=== PATIENT | male | born 1970 | race Caucasian/White ===

== ENCOUNTER 2017-10-27 14:26 | Inpatient (IN) | payer OTHER ==
[~2017-10-27] VITALS: Ht 172.7 cm; Wt 67.1 kg
--- NOTE | 2017-10-27 15:30 | NUR ---
Pre-Admit Assessment Accountant Bookkeeper encounters pt in intake office. Pt is calm and cooperative and bale to make needs known. Pt is intoxicated and com writer unable to get a COWS. Pt last used at 1000 this morning and used Heroin and Fentanyl IV. Pt is A/O x4, flat affect with depressed mood. Pt is requesting medical management of opiate withdrawals. Pt is stable for admission. VS as follows BP:132/57 P: 54 R: 18 T: 98.4 O2: 97% P: 0/10
[2017-10-27] MEDS ORDERED: ONDANSETRON 4 MG/2 ML VIAL IM PRN (16:15)
[2017-10-27] MEDS ORDERED: ACETAMINOPHEN 325 MG TABLET PO PRN (16:15)
[2017-10-27] MEDS ORDERED: MAGNESIUM HYDROXIDE 30 ML LIQUID UDC PO PRN (16:15)
[2017-10-27] MEDS ORDERED: BUPRENORPHINE HCL 2 MG TAB.SUBL SL PRN (16:15)
[2017-10-27] MEDS ORDERED: IBUPROFEN 600 MG TABLET PO PRN (16:15)
[2017-10-27] MEDS ORDERED: MIRALAX 17 GM POWD.PACK PO PRN (16:15)
[2017-10-27] MEDS ORDERED: ONDANSETRON ODT 4 MG TAB.RAPDIS SL PRN (16:15)
[2017-10-27] MEDS ORDERED: MAG HYDROX/AL HYDROX/SIMETH 30 ML LIQUID UDC PO PRN (16:15)
[2017-10-27] MEDS ORDERED: LOPERAMIDE HCL 2 MG CAPSULE PO PRN ×2 (16:15)
--- NOTE | 2017-10-27 16:31 | NUR ---
Admission Pt is a 47 year old male admitted to [facility] for medical management of Opiate withdrawals. Pt arrived on the unit at 1631. Pt with constricted eyeballs, and is flushed and anxious. Pt with a flat affect and congruent mood. A/O x4 and makes needs known. Pt is intoxicated, COWS deferred, having last used at 1000 this morning. Pt endorses, feeling fine, then states, I am starting to get a bit edgy. Pt endorses teary eyes, chills, skin crawling and generalized malaise, when I get enough sleep to come down. Pt states, you know I feel horrible and nasty. Pt denies any history of seizures. Endorses blackouts and has overdosed twice, without need of Narcan or ER treatment. Pt states he has been to one treatment facility in 2005 and left after a week. Pt has been abstinent from ETOH for approximately 14 years, due to a diagnosis of Pancreatitis. Substance use: 1. Heroin, pt began using IV Heroin at age 33, 14 years ago. Pt used 1-2 grams a day for 14 years and then weaned himself to 0.5 grams daily x1 month. Pt states he first used opiates at age 7 when he chewed up his grandmas Dilaudid. Last IV shot was at 1000 10/27/17, 0.1 grams 2. Fentanyl pt states he has been using 2 points a week of substance purchased from the street. Pt states he used 2 points in the last week and has been using that amount for the past few months. Pt last used 1 point(IV) at 1000 this morning. 3. Crack, pt states he began using at age 16 and has used up to 2 grams a day since, with a period of abstinence between 2011- and 2015. Pt endorses last use on 10/26/09, about .25 grams. 4. ETOH, pt with a history of ETOH abuse and has not had a drink in 14 years after being diagnosed with Pancreatitis. Pt states he uses, tova if I dont I will feel like crap. I dont like most people, dont like how my life has been going the last couple of years. Pt endorses wanting to get sober, to see what the other side looks like. I have been high my entire life, Kahlua in my milk as a child, smoking weed at 1 and eating Dilaudid at 7. Everyone says how great sobriety is, thought I would try. Pt states he has no support system, although parents allowed pt to stay at their house while pt was accepted into rehab. Pt delays and is indecisive when asked about family support, we just butt heads, constantly. Pt attributes this lack of support and the fact he is homeless as possible barriers to staying sober. Pt sees loss of friendships, lots gone b the wayside, and legal issues as major consequences of his use. Pt states he has never really tried to get sober, aside from 1 week in treatment in 2005. Pt is wanting [facility] and go to [facility] and live in sober living. Pt states he has a history of Pancreatitis and no PPH. Pt denies any PCP. Pt has no history of 5150, no psych hospitalizations or SA. Pt denies SI/HI or A/VH. Pt has a right forearm abscess., pictures taken and placed in chart. Vital Signs: BP: 132/57, P: 54, R: 18, T:98.4, O2: 97%: P:0/10 Addendum: 10/30/17 at 1427 by RONNIE DON RN Clarification of Use History: Patient states that he first used Fentanyl 2 weeks ago. Everyday for the past 2 weeks he used IV Fentanyl that he purchased on the streets. Patient is unaware how many mcg of fentanyl he used daily, but states that he spent $20/day on Fentanyl and that was enough to inject 3x/day. He states that he last used on the day of admission at 1000 am.
[2017-10-27 17:52] LABS: BASOPHILS # (AUTO) 0.1 K/uL (0.0-8.0); EOSINOPHILS # (AUTO) 0.2 K/uL (0.0-0.7); EOSINOPHILS % (AUTO) 2.9 % (0.0-7.0); HEMATOCRIT 31.9 % (36.7-47.1); HEMOGLOBIN 10.4 g/dL (12.5-16.3); LYMPHOCYTES # (AUTO) 1.4 K/uL (20.0-40.0); LYMPHOCYTES % (AUTO) 21.3 % (20.5-51.5); MEAN CORPUSCULAR HEMOGLOBIN 26.2 uug (23.8-33.4); MEAN CORPUSCULAR HGB CONC 33 g/dL (32.5-36.3); MEAN CORPUSCULAR VOLUME 80.3 fL (73.0-96.2); MONOCYTES # (AUTO) 0.7 K/uL (2.0-10.0); MONOCYTES % (AUTO) 11.1 % (0.0-11.0); NEUTROPHILS # (AUTO) 4.1 K/uL (1.8-8.9); NEUTROPHILS % (AUTO) 63.7 % (38.5-71.5); PLATELET COUNT (AUTO) 167 K/uL (152-348); RED BLOOD CELL COUNT(AUTO) 3.98 MIL/uL (4.06-5.63); WHITE BLOOD COUNT (AUTO) 6.4 K/uL (3.6-10.2)
[2017-10-27 18:02] LABS: ETHANOL < 3 MG/DL (0-0)
[2017-10-27 18:04] LABS: ALANINE AMINOTRANSFERASE 26 U/L (16-63); ALKALINE PHOSPHATASE 120 U/L (50-136); ASPARTATE AMINOTRANSFERASE 14 U/L (15-37); BILIRUBIN,TOTAL 0.2 mg/dL (0.2-1.0); CARBON DIOXIDE 28 mmol/L (21-32); CHLORIDE 101 mmol/L (98-107); CREATININE 1.2 mg/dL (0.6-1.3); GLUCOSE 99 mg/dL (74-106); MAGNESIUM 2.1 mg/dL (1.8-2.4); TOTAL PROTEIN, SERUM 6.7 g/dL (6.4-8.2); UREA NITROGEN, BLOOD 12 mg/dL (7-18)
--- NOTE | 2017-10-27 19:00 | NUR ---
End of Shift Pt is a 47 year old male admitted to [facility] this afternoon by brief writer, for medical management of Opiate withdrawals. Pt endorses NKA, full code and regular diet. Pt with a PMH of Pancreatitis and no PPH. No known seizure history. See admit note for specifics. Galley Boy covered pts abscess with MD desiree in room aand ordered surgical consult. Pt was admitted intoxicated and is currently resting. Bed in low position with wheels locked and side rails up x2.
--- NOTE | 2017-10-27 19:15 | NUR ---
Start of shift note Received report from day shift nurse. Pt is a 47 yo male, A+Ox4, presenting to [facility] for medically supervised Opiate withdrawal. Pt was also using crack cocaine. Pt noted to be restless, anxious, and agitated. Pt has HX of pancreatitis which will be monitored during shift. Pt is on PRN medications, and is to start 3 day Subutex taper tomorrow. Respirations even and unlabored. Will continue to monitor.
[2017-10-27 19:43] LABS: *AMPHETAMINE, URINE NEGATIVE (NEGATIVE); *BARBITURATE, URINE NEGATIVE (NEGATIVE); *CANNABINOID, URINE NEGATIVE (NEGATIVE); *COCCAINE, URINE POSITIVE (NEGATIVE); *OPIATE, URINE POSITIVE (NEGATIVE); *PHENCYCLIDINE SCREEN,URINE NEGATIVE (NEGATIVE)
[2017-10-27 20:14] VITALS: BP 129/44
--- NOTE | 2017-10-27 20:14 | NUR ---
COWS Assessment COWS: 9. Pt noted with pulse 47, chills, enlarged pupils, stuffy nose, stomach cramps, fine tremors, yawning, and obvious anxiety. Respirations even and unlabored. Will continue to monitor.
--- NOTE | 2017-10-28 00:58 | NUR ---
V/S refused and COWS deferred for sleep. Respirations even and unlabored. Will continue to monitor.
--- NOTE | 2017-10-28 04:20 | NUR ---
V/S refused and COWS deferred for sleep. Respirations even and unlabored. Will continue to monitor.
[2017-10-28] MEDS: LORAZEPAM 1 MG TABLET PO PRN ×3 (05:55→22:18)
--- NOTE | 2017-10-28 05:57 | NUR ---
PRN Ativan 2mg Pt c/o anxiety and requested for PRN Ativan. Medication given and tolerated well. Will reassess within 1 HR. Will continue to monitor.
--- NOTE | 2017-10-28 06:48 | NUR ---
PRN Ativan 2mg Reassessment Medication effective. Pt expresses reduction of anxiety. No s/s of ASE noted at this time. Respirations even and unlabored. Will continue to monitor.
--- NOTE | 2017-10-28 07:00 | NUR ---
End of shift note Pt was continuously noted with anxiety, restlessness, and agitation. Pt remained in room for majority of shift except to go smoke on smoking patio, to get food from kitchen, and to interact with other patients in recreational room. Pt remained compliant and cooperative with all aspects of treatment. Pt was given PRN Ativan 2mg @0557. Pt is on PRN medications and is due to start 3 day Subutex taper today. Pt slept for a total of 4 HRS. Last COWS: 9 @1999. Respirations even and unlabored. Will endorse to day shift nurse.
[2017-10-28 08:00] VITALS: BP 125/72
--- NOTE | 2017-10-28 08:20 | NUR ---
START OF SHIFT: Received Pt A/O x 4. His pupils are pinpointed. He nods off during assessment. He is refusing PPD. Subutex held per MD due to COWS score.. COWS 8. He states he is tired and would like to sleep more. Encouraged increased fluids and rest. Will continue to monitor and provide support.
[2017-10-28] MEDS: BUPRENORPHINE HCL 2 MG TAB.SUBL SL SCH ×2 (09:00→20:02)
[2017-10-28] MEDS ORDERED: TUBERCULIN,PURIF.PROT.DERIV. 5 TU/0.1 ML TEST ID ONE (09:00)
[2017-10-28] MEDS ORDERED: 3 DAY TAPER BUPRENORPHINE -SERENITY PROTOCOL SL PRN (09:00)
[2017-10-28 12:00] VITALS: BP 111/59
--- NOTE | 2017-10-28 12:15 | NUR ---
COWS deferred as Pt is asleep. Respiratons even and unlabored. Will continue to monitor.
--- NOTE | 2017-10-28 13:00 | NUR ---
Wound culture done as ordered and sent to lab.
[2017-10-28] MEDS: SULFAMETH/TRIMETH 800/160 MG TABLET PO SCH ×2 (13:53→20:02)
--- NOTE | 2017-10-28 13:59 | NUR ---
PRN Ativan given for reported agitation,restlessness and severe anxiety. COWS 10 he states he would like to wait a while for Subutex .Will also administer PRN Robaxin for reported body aches and muscle cramps.
[2017-10-28] MEDS: METHOCARBAMOL 750 MG TABLET PO PRN (14:05)
--- NOTE | 2017-10-28 14:59 | NUR ---
Pt states Ativan is effective and he feels more relaxed. Will continue to monitor. Addendum: 10/28/17 at 1800 by MARIELA LAN RN Pt states the Robaxin was only mildly effective.
[2017-10-28] MEDS ORDERED: LIDOCAINE 2%-EPI 1:100,000 20 ML VIAL TP ONE (15:30)
[2017-10-28] MEDS ORDERED: SILVER NITRATE APPLICATOR STICK EACH TP ONE (15:30)
[2017-10-28] MEDS ORDERED: BUPRENORPHINE HCL 2 MG TAB.SUBL SL ONE ×3 (15:30→23:00)
--- NOTE | 2017-10-28 15:30 | NUR ---
GROCERY STORE COURTESY CLERK assessed Pt's wound. Consent signed by Pt and GROCERY STORE COURTESY CLERK performed I & D. She collected culture and it was sent to lab. New order per MD for Bactrim PO BID. Was instructed to cleanse wound with NS and pack with Iodoform gauze then cover with dry dressing. He tolerated procedure well. Pictures taken and placed in chart. Addendum: 10/28/17 at 1751 by MARIELA LAN RN wound care ordered daily
--- NOTE | 2017-10-28 15:40 | NUR ---
One time Subutex 4 mg SL given as AM diose was held due to low COWS score. COWS 14 will monitor effectiveness of medication.
[2017-10-28 16:00] VITALS: BP 125/75
--- NOTE | 2017-10-28 16:10 | NUR ---
Pt states Subutex was effective. COWS 11. Will continue to monitor.
[2017-10-28] MEDS: CLONIDINE HCL 0.1 MG TABLET PO PRN (17:18)
--- NOTE | 2017-10-28 17:20 | NUR ---
Pt is having severe muscle twitching and is extremely fidgety,anxious and restless. PRN Clonidine 0.1 mg PO given. Will monitor effectiveness.
--- NOTE | 2017-10-28 18:00 | NUR ---
MD Communication Pt is experiencing full body muscle twitching and restlessness. He appears uncomfortable with a strained facial expression. Contacted MD with orders for Gabapentin TID starting now and one time Subutex.
[2017-10-28] MEDS: GABAPENTIN 400 MG CAPSULE PO SCH ×2 (18:12→20:02)
--- NOTE | 2017-10-28 18:20 | NUR ---
PRN Clonidine was not effective.
--- NOTE | 2017-10-28 18:21 | NUR ---
Subutex 4mg SL given one time per MD for COWS 15. He is twitching and unable to sit still with fidgeting and reports anxiety . Gabapentin 400 mg po also given as ordered. Will monitor effectiveness of Subutex.
--- NOTE | 2017-10-28 19:12 | NUR ---
Subutex only mildly effective as pt is still flailing and twitching.COWS 14. Pt placed on 1:1 for safety.
--- NOTE | 2017-10-28 19:13 | NUR ---
END OF SHIFT: Pt started Subutex this afternoon to manage s/s of w/d which include muscle aches ,anxiety, sweats and late in the day severe muscle twitching and flailing. He was placed on 1:1 for safety. PRN Ativan,Clonidine and PRN Robaxin given to assist in managing s/s of w/d. Last COWS 14. Pt is twitching and fidgeting uncontrollably and states this has happened before when he has detoxed in the past. He was compliant with increased fluids. PPD refused. [facility]
--- NOTE | 2017-10-28 19:30 | NUR ---
START OF SHIFT Patient is a 47-year-old male admitted on 10/27/17 for opiate withdrawal. Patient is currently on a 3-day Subutex taper, as of today; tolerating well. Patient's last COWS was 14 per day shift, after most recent dose of Subutex. Patient received PRN Robaxin, Clonidine and Ativan today, of which only the PRN Ativan was noted to be effective. Patient also received 2 doses of ONE-TIME Subutex 4mg SL; the first dose was noted to be effective, the second was much less effective. Upon assessment, patient appears very restless, extremities flailing and jerking, patient is unable to remain still for more than a few seconds at any given moment. Patient reports feeling anxious and complains of 8/10 lower back pain that is "throbbing." When asked how the pain started, patient reported, "I've had this back pain since 1998." Patient is alert and oriented x3, able to follow commands and cooperative. Patient is disheveled, unshaven, and is odorous. Patient is currently on a 1:1 for safety as of 1830 earlier today, as his condition has changed in the last couple hours. Patient is unsteady and unable to control his body movements. Patient is on fall and seizure precautions, with no history of seizure. Safety measures in place, side rails up x2, bed locked in low position, call light within reach, 1:1 at bedside. Will continue to monitor.
[2017-10-28 20:00] VITALS: BP 128/76
--- NOTE | 2017-10-28 20:00 | NUR ---
COWS 25 Patient is increasingly tremulous and restless, agitated, anxious, flushed and diaphoretic. Patient has been sneezing, yawning, and flailing constantly. Patient's respirations are even and unlabored, patient is still oriented to name, place and situation. Charge nurse notified. SN to administer medications as ordered. Will continue to monitor.
[2017-10-28] MEDS: diphenhydrAMINE 50 MG CAPSULE PO PRN (20:10)
--- NOTE | 2017-10-28 20:10 | NUR ---
PRN BENADRYL After receiving scheduled meds, patient reports, "I just need to sleep." PRN Benadryl 50mg given PO. Safety measures in place, 1:1 at bedside. Will monitor for effectiveness.
[2017-10-28] MEDS: KETOROLAC TROMETHAMINE 30 MG INJ IM PRN (20:12)
--- NOTE | 2017-10-28 20:12 | NUR ---
PRN TORADOL Patient reported to nurse that previous PRN Robaxin was ineffective and requested a different pain medication. MD was notified; approved PRN Toradol. Patient reports lower back pain, 8/10 on pain scale. SN administered PRN Toradol IM to patient's left deltoid; patient tolerated well and was able to remain still for a few seconds to receive the injection. Safety measures in place, side rails up x2, bed locked in low position, 1:1 at bedside. Will monitor for effectiveness.
--- NOTE | 2017-10-28 20:21 | NUR ---
PRN IMODIUM Patient reports having "diarrhea," first bout was within the last hour. PRN Imodium given PO. Safety measures in place, 1:1 at bedside. Will monitor for effectiveness.
--- NOTE | 2017-10-28 20:42 | NUR ---
PRN TORADOL REASSESSMENT Patient reports improvement in lower back pain. Pain is now 4/10 on pain scale. PRN Toradol noted to be effective. Safety measures in place, side rails up x2, bed locked in low position, 1:1 at bedside. Will continue to monitor.
--- NOTE | 2017-10-28 20:50 | NUR ---
Ativan IM, Subutex one-time and Trazodone PRN Patient continues to be increasingly restless, agitated and with visual and auditory hallucinations. With 1:[address] Saleh notified and ordered Ativan 2 mg IM once, Subutex 4 mg SL once and Trazodone 50 mg PO HSPRN. Entered at [facility] and will be administered. Addendum: 10/29/17 at 0427 by BAM PENNY RN CORRECTION: CORRECT TIME SHOULD BE 6883
--- NOTE | 2017-10-28 20:55 | NUR ---
RN note Vital Signs Vital Signs as follows: BP: 135/84, P=76, RR=22, Temp=98.8, O2 sat on BJ=122%. Addendum: 10/29/17 at 7026 by BAM PENNY RN CORRECTION: CORRECT TIME SHOULD BE 3307
--- NOTE | 2017-10-28 21:10 | NUR ---
PRN BENADRYL REASSESSMENT Patient denies feeling sleepy at this time. Patient is awake and moving constantly, jerking and flailing his extremities. PRN Benadryl ineffective at this time. Safety measures in place, 1:1 at bedside. Will continue to monitor.
[2017-10-28] MEDS ORDERED: LORAZEPAM 1 MG TABLET PO PRN (21:15)
[2017-10-28] MEDS ORDERED: BUPRENORPHINE HCL 2 MG TAB.SUBL SL PRN (21:15)
--- NOTE | 2017-10-28 21:18 | NUR ---
MD COMMUNICATION MD was notified about patient's recent change of condition. SN requested to extend PRN Ativan and PRN Subutex for another 24 hours. Orders inputted, awaiting pharmacy verification.
--- NOTE | 2017-10-28 21:21 | NUR ---
PRN IMODIUM REASSESSMENT Patient has not had loose stool since administration of PRN Imodium; effective at this time. Safety measures in place, 1:1 at bedside. Will continue to monitor and assess.
--- NOTE | 2017-10-28 21:45 | NUR ---
CIWA 25 Patient has a CIWA of 25 at this time. Patient is anxious, extremely agitated and extremely restless. Patient is oriented to person, place, and situation, responds to his name at this time, able to follow commands. Patient is flushed and diaphoretic. He is beginning to exhibit some signs of visual hallucination, having grasped at the air a couple times. Patient responds to redirection and is cooperative, not aggressive. SN waiting for pharmacy to approve PRN Ativan at this time. Safety measures in place, side rails up x2, bed locked in low position, 1:1 at bedside. Will continue to monitor and assess.
--- NOTE | 2017-10-28 22:18 | NUR ---
PRN ATIVAN 2MG PRN orders approved; PRN Ativan 2mg given PO for CIWA greater than 16. Patient was able to swallow both tablets without difficulty, however, coaxing patient to focus on the task at hand took about 10 minutes, including constant redirecting. Safety measures in place, side rails up x2, bed locked in low position, 1:1 at bedside. Will monitor for effectiveness.
--- NOTE | 2017-10-28 22:50 | NUR ---
MD COMMUNICATION Despite administering PRN Ativan 2mg PO at 2218 for CIWA of 25, patient has been flailing constantly with no improvement in restlessness. In fact, patient has begun to mumble/mutter to himself and appears more confused. Patient's visual hallucinations have become increasingly apparent, as he attempts to grab at the air and reach for objects that only he can see. Patient is still cooperative and responsive to redirection, however his attention span is so short that he can barely follow any simple commands. Patient is not aggressive at this time. Dr. Saleh has been notified. Current CIWA 29, due to increased confusion and visual hallucinations. Orders for one-time Ativan 2mg IM, one-time Subutex 4mg SL, and PRN Trazodone 50mg PO have been placed. Awaiting pharmacy approval at this time. SN to administer meds as ordered. Safety measures in place, side rails up x2, bed locked in low position, 1:1 at bedside. Will continue to monitor and assess.
[2017-10-28] MEDS ORDERED: LORAZEPAM 2 MG/1 ML VIAL IM ONE (23:00)
--- NOTE | 2017-10-28 23:13 | NUR ---
ONE-TIME ATIVAN 2mg IM Orders verified by pharmacy; one-time Ativan 2mg IM given in patient's right deltoid, with the help of bar host to steady patient. Patient tolerated well. Safety measures in place, 1:1 at bedside. Will monitor for effectiveness.
--- NOTE | 2017-10-28 23:18 | NUR ---
PRN ATIVAN 2mg REASSESSMENT Upon reassessment of first PRN Ativan 2mg, patient has not improved. In fact, patient's condition has declined. His current CIWA is 29. Safety measures in place, side rails up x2, bed locked in low position, 1:1 at bedside. Patient's bed was moved to other side of room to keep patient safe from shelving next to bedside. Will continue to monitor and administer medications as ordered.
[2017-10-28] MEDS: TRAZODONE 50 MG TABLET PO PRN (23:19)
--- NOTE | 2017-10-28 23:19 | NUR ---
ONE-TIME SUBUTEX 4mg SL Patient has a current COWS of 23. He is flushed and diaphoretic, unable to remain still, very agitated and restless. Patient yawns and sneezes several times within each hour. One-time Subutex given SL. Patient tolerated well. Safety measures in place, 1:1 at bedside. Will monitor for effectiveness.
--- NOTE | 2017-10-28 23:19 | NUR ---
PRN TRAZODONE 50mg PRN Trazodone 50mg given PO, after much encouragement and redirection patient swallowed the tablet with no difficulty. Safety measures in place, side rails up x2, bed locked in low position, 1:1 at bedside. Will monitor for effectiveness.
--- NOTE | 2017-10-28 23:43 | NUR ---
ONE-TIME ATIVAN 2mg IM REASSESSMENT Patient appears to show no change in his condition since the administration of one-time IM Ativan 2mg. Current CIWA 28 for slight decrease in flailing/thrashing about. Safety measures in place, side rails up x2, bed locked in low position, 1:1 at bedside. Will continue to monitor and assess, and give medications as ordered.
--- NOTE | 2017-10-28 23:49 | NUR ---
ONE-TIME SUBUTEX 4mg REASSESSMENT One-time Subutex of 4mg was mildly effective. Patient has a current COWS of 21. Respirations are unlabored, patient is still redirectable, not aggressive. Safety measures in place, 1:1 at bedside. Will continue to monitor.
[2017-10-29] VITALS: BP 122/70
[2017-10-29] MEDS: LORAZEPAM 1 MG TABLET PO PRN ×2 (00:19→02:25)
--- NOTE | 2017-10-29 00:19 | NUR ---
CIWA 28, PRN ATIVAN 2mg Patient continues to be agitated, restless, constantly moving and changing his position in bed, getting up to urinate, grasping at the air or his sheets. Patient is visibly flushed and diaphoretic; current CIWA 28. No respiratory distress or SOB noted. PRN Ativan 2mg given PO for CIWA greater than 16, as ordered. Patient able to swallow with no difficulty, although attention span is extremely limited, patient is able to follow commands after 10 minutes of redirection. Safety measures in place, side rails up x2, bed locked in low position, 1:1 at bedside. Will continue to monitor for effectiveness. Will continue to assess.
--- NOTE | 2017-10-29 00:19 | NUR ---
PRN TRAZODONE REASSESSMENT Patient is still awake, jerking and flailing uncontrollably, agitated and restless. PRN Trazodone noted to be ineffective at this time. Safety measures in place, 1:1 at bedside. Will continue to monitor and give medications as ordered.
--- NOTE | 2017-10-29 01:19 | NUR ---
PRN ATIVAN REASSESSMENT Patient's condition has not changed in the last hour. He is only slightly less diaphoretic and flushed. Current CIWA is 27. Safety measures in place, side rails up x2, bed locked in low position, 1:1 at bedside. Will continue to monitor and assess.
--- NOTE | 2017-10-29 02:25 | NUR ---
CIWA 25, PRN ATIVAN 2mg Patient continues to be anxious, agitated, restless, and fidgety. Patient is a little less flushed and noticeably less diaphoretic. Patient has a current CIWA of 25. PRN Ativan 2mg given PO for CIWA greater than 16. Safety measures in place, side rails up x2, bed locked in low position, 1:1 at bedside. Will continue to assess and monitor for effectiveness.
--- NOTE | 2017-10-29 03:25 | NUR ---
PRN ATIVAN REASSESSMENT Patient is anxious, agitated, restless, and fidgety. Patient has a CIWA of 24. PRN Ativan seems mildly effective, but overall CIWA scores have been decreasing. Patient continues to attempt to sit up or even stand up in bed. Usually this is an indication that he needs to void. Patient is still visibly confused. Safety measures in place, side rails up x2, bed locked in low position, 1:1 at bedside. Will continue to assess and monitor.
[2017-10-29 04:00] VITALS: BP 116/68
--- NOTE | 2017-10-29 04:00 | NUR ---
COWS 19, CIWA 23 Patient has a current COWS of 19 and a current CIWA of 23. He is still fidgety and restless, legs kicking and arms twitching. Patient rolls around in bed as if he cannot get comfortable. Next PRN Ativan can be given as early as 0425. SN to continue monitoring and assessing. Safety measures in place, side rails up x2, bed locked in low position, 1:1 at beside.
--- NOTE | 2017-10-29 04:30 | NUR ---
PT SLEEPING Upon assessment, patient is alseep, laying in bed, not fidgeting or flailing, no longer kicking his legs. Respirations even and unlabored. Safety measures in place, side rails up x2, bed locked in low position, 1:1 at bedside. No PRN medications given at this time. Will continue to monitor and assess.
--- NOTE | 2017-10-29 07:30 | NUR ---
END OF SHIFT Patient is a 47-year-old male admitted on 10/27/17 for opiate withdrawal. Patient is currently on a 3-day Subutex taper, so far not tolerating well, as evidenced by last night's events; today will be day 2 of taper. Patient last COWS was 19, last CIWA was 23. Patient received the following PRN medications: Benadryl PO, Toradol IM, Imodium PO, Ativan 2mg x3, and Trazodone PO. Patient also received a one-time dose of Ativan 2mg IM and a one-time dose of Subutex 4mg SL. Patient slept for about 3 hours, since 0430, total intake of 560mL, void x15, stool x3. After administration of PRN Imodium, patient no longer had loose stools. Patient continues on 1:1 for safety, related to unsteady gait, uncontrolled movements, and confusion. Patient is on fall and seizure precautions, with no history of seizure. Safety measures in place, side rails up x2, bed locked in low position, call light within reach, 1:1 at bedside. Will endorse to day shift.
--- NOTE | 2017-10-29 07:35 | NUR ---
START OF SHIFT Rcvd endorse from ongoing nurse, client is in bed, fidgeting and kicking his legs while sleeping, RR 16, even, non-labored, noted with clammy skin. 1:1 sitter at bedside for safety precautions. PRN medications administered overnight, client slept 3 hrs. [place] precautions. Call light within reach. Flash continue to monitor.
--- NOTE | 2017-10-29 08:32 | NUR ---
MARYJO 10 Client presents with anxious mood, flushed face, sense of panic, restless, anxious, irritable, nauseous, poor appetite, restless legs, fatigue, and difficulty concentrating. Ativan 1mg PO administered. Call light within reach Addendum: 10/29/17 at 1815 by GAMALIEL SINGH RN WRONG CLIENT
[2017-10-29 09:00] VITALS: BP 111/69
--- NOTE | 2017-10-29 09:00 | NUR ---
Client refuses the wound treatment to R F/A, risk and benefits discuss, but he still refused. CN notified.
[2017-10-29] MEDS: SULFAMETH/TRIMETH 800/160 MG TABLET PO SCH ×2 (09:59→21:37)
[2017-10-29] MEDS: GABAPENTIN 400 MG CAPSULE PO SCH ×3 (09:59→21:37)
[2017-10-29] MEDS: BUPRENORPHINE HCL 2 MG TAB.SUBL SL SCH ×3 (09:59→21:39)
--- NOTE | 2017-10-29 10:00 | NUR ---
COWS 13 Client presents with anxious mood, restless legs, tremors, enlarged pupils, yawning, watery eyes, and goosebump. Client reports stomach cramps, nausea, irritability, and poor appetite. Subutex 4mg SL administered. Call light within reach.
[2017-10-29 10:07] LABS: HEPATITIS B SURFACE AG Negative (Negative)
--- NOTE | 2017-10-29 10:30 | NUR ---
wound culture w/gs results No growth to date
[2017-10-29 12:59] VITALS: BP 156/102
[2017-10-29] MEDS: METHOCARBAMOL 750 MG TABLET PO PRN ×2 (13:03→23:16)
[2017-10-29] MEDS: CLONIDINE HCL 0.1 MG TABLET PO PRN (13:04)
--- NOTE | 2017-10-29 13:04 | NUR ---
COWS 13 Client presents with clammy skin, anxious mood, restless legs, tremors, enlarged pupils, yawning, watery eyes, and goosebump. Client reports stomach cramps, generalized muscle pain 8/10, and anxiety. PRN Clonidine 0.1mg PO administered for anxiety, agitation, and increased BP 156/102, Robaxin 750mg PO for generalized myalgia 8/10. Call light within reach.
[2017-10-29] MEDS ORDERED: QUETIAPINE FUMARATE 25 MG TABLET PO PRN (13:15)
--- NOTE | 2017-10-29 14:04 | NUR ---
Reassess PRN Clonidine 0.1mg, Robaxin 750mg client reports slight relief from anxiety, BP 131/82 decreased in pain 3/10, but tolerable. Call light within reach.
[2017-10-29 16:57] VITALS: BP 121/69
[2017-10-29] MEDS: KETOROLAC TROMETHAMINE 30 MG INJ IM PRN (18:19)
--- NOTE | 2017-10-29 18:19 | NUR ---
PRN Toradol 30mg IM to L deltoid for pain on R /A 10/27.
--- NOTE | 2017-10-29 18:49 | NUR ---
Reassess PRN Toradol 30mg, client reports slight relief from on R F/A pain 3/10, but tolerable.
--- NOTE | 2017-10-29 19:27 | NUR ---
END OF SHIFT Endorse client to incoming nurse, client is in his room, a/o x 4, client continues to present with depressed, anxious mood, skin clammy, enlarged pupils, flushed face, tremors, and difficulty concentrating. PRN medication administered and noted per protocol. Client is on 1:1 sitter for safety. Client not compliant with group therapy due to above withdrawal symptoms. Adequate PO fluid intake 2100mL, void x 2. Client consumes 75% of meals. Last COWS 13 @ 1600. [place] precautions in place. call light within reach.
--- NOTE | 2017-10-29 19:30 | NUR ---
START OF SHIFT Pt is a 47 y/o male admitted on 10/27/17 for opiate withdrawal. Pt also used crack cocaine. Pt is on a 3 day Subutex taper that started on 10/28/17, tolerating well. Last COWS 13 and PRN Clonidine, Robaxin and Toradol administered during day shift. Pt is on a 1:1 for safety. Pt has a dressing on right forearm for drained abscess and is on Bactrim. Upon assessment pt presents with anxiety, lethargy, fatigue, flat affect, depressed affect, intermittent tremors, intermittent sweats, difficulty concentrating, enlarged pupils, agitation, disheveled appearance, unkempt room and is odorous. Medications due. Safety measures in place. 1:1 sitter at bedside. Will continue to monitor.
[2017-10-29 20:00] VITALS: BP_SYST 118; BP_DIAS 56; BP_DIAS 62
--- NOTE | 2017-10-29 20:00 | NUR ---
COWS 11 Pt presents with anxiety, lethargy, fatigue, flat affect, depressed affect, intermittent tremors, intermittent sweats, difficulty concentrating, enlarged pupils, agitation, disheveled appearance, difficulty falling asleep, unkempt room and is odorous. Pt is going down for smoke break. 1:1 sitter at bedside.
[2017-10-29] MEDS: diphenhydrAMINE 50 MG CAPSULE PO PRN (23:16)
--- NOTE | 2017-10-29 23:16 | NUR ---
LANETTE BENADRYL AND ROBAXIN Pt requested sleep aid for sleep and Robaxin for body aches 08/27. Safety measures in place. 1:1 sitter at bedside. Will continue to monitor.
[2017-10-30] VITALS: BP 135/87
--- NOTE | 2017-10-30 | NUR ---
COWS 11 Pt presents with anxiety, flat affect, intermittent tremors, intermittent sweats, difficulty concentrating, enlarged pupils, agitation, disheveled appearance, unkempt room and is odorous. Pt appears more restless and is going for frequent smoke breaks.
--- NOTE | 2017-10-30 00:16 | NUR ---
LANETTE QUEEN AND ALISON REASSESSMENT Pt reports body aches 6/10 still. Pt states, "It feels the same." Pt awake and taking frequent smoke breaks, states, "I don't feel tired." Encouraged relaxation techniques. 1:1 sitter at bedside. Will continue to monitor.
[2017-10-30] MEDS: TRAZODONE 50 MG TABLET PO PRN ×2 (01:36→21:02)
--- NOTE | 2017-10-30 01:36 | NUR ---
PRN SEROQUEL, TRAZODONE, AND MOTRIN ADMINISTRATION Pt presents with restlessness and is fidgety/unable to sit still, states "I still can't sleep." PRN Trazodone 50 mg administered. Pt presents with agitation r/t cravings and not being able to sleep, PRN Seroquel 25 mg administered. Pt reports body aches 6/10, PRN Motrin 600 mg administered. Safety measures in place. 1:1 sitter at bedside. Will continue to monitor.
--- NOTE | 2017-10-30 02:36 | NUR ---
PRN SEROQUEL, TRAZODONE AND MOTRIN REASSESSMENT Pt laying in bed with eyes closed, medications noted effective. Respirations even and unlabored. Safety measures in place. Call light within reach. Will continue to monitor.
--- NOTE | 2017-10-30 04:00 | NUR ---
COWS DEFERRED AND VITALS REFUSED Pt laying in bed with eyes closed, COWS deferred, to be assessed when pt is awake per orders. Vitals refused. Respirations even and unlabored. Safety measures in place. Call light within reach. Will continue to monitor.
--- NOTE | 2017-10-30 07:10 | NUR ---
END OF SHIFT Pt is a 47 y/o male admitted on 10/27/17 for opiate withdrawal from heroin and fentanyl. Pt is on a 3 day Subutex taper that started on 10/28/17. Pt is on a 1:1 for safety. 0pon assessment pt presents with anxiety, flat affect, depressed affect, intermittent tremors, intermittent sweats, difficulty concentrating, enlarged pupils, agitation, disheveled appearance, unkempt room, restlessness, fidgety/inability to sit still, difficulty falling asleep, body aches and was odorous. Pt verbalized having cravings. Scheduled medications and PRN Robaxin, Benadryl, Seroquel, Trazodone and Motrin administered, effective in S/S of withdrawal as verbalized by pt. Last COWS 11 at 0000. Pt slept 5 hours. Intake 1190 ml, void x 1, stool x 0. Safety measures in place. 1:1 sitter at bedside. Pts needs have been met. Endorsed to day shift nurse.
--- NOTE | 2017-10-30 07:30 | NUR ---
WOUND CARE CONSULT WOUND CARE RECEIVED CONSULT FOR ABSCESS ON RIGHT FOREARM. WOUND CARE WILL DEFER CONSULT AND TREATMENT PLAN TO SURGICAL TEAM THEY ARE CURRENTLY FOLLOWING. PATIENT WITH [facility] AT 17. WILL SEE PRN.
[2017-10-30 08:00] VITALS: BP 110/61
--- NOTE | 2017-10-30 08:00 | NUR ---
START OF SHIFT Pt is a 47 y/o M admitted on 10/27/17 for medically supervised heroin and fentanyl withdrawal. Today is the 3rd day of a 3 day subutex taper; pt is tolerating well. Pt is currently sleeping with sitter by bedside, appears disheveled and in a position. Pt continues on a 1:1 sitter for safety reasons; pt was previously confused/disorientation. Pt has been given benadryl, robaxin, seroquel, ibuprofen, and trazodone prns during shift supervisor melting. Wound care to be done daily and as needed on R FA abscess cavity with NS irrigation and idoform packing strip, cover w/ dry dressing. Slept 6 hrs and last COWS 11. Side rails upx2 and padded, bed in low position. Call light within reach and safety measures in place. Will continue to monitor.
[2017-10-30] MEDS ORDERED: BUPRENORPHINE HCL 2 MG TAB.SUBL SL SCH (09:00)
[2017-10-30] MEDS: SULFAMETH/TRIMETH 800/160 MG TABLET PO SCH ×2 (09:18→20:50)
[2017-10-30] MEDS: GABAPENTIN 400 MG CAPSULE PO SCH ×3 (09:18→20:50)
--- NOTE | 2017-10-30 09:20 | NUR ---
COWS 15 Pt is A/O to person, place, time, and situation. Pt has a disheveled appearance, dirty fingernails, poor eye contact with speaking, has a flat affect and anxious mood. Pt c/o inability to sit still, restlessness, high anxiety, intermittent chills and goosebumps, sweating, nasal stuffiness, agitation, joint and generalized body aches, and stomach cramps. Pt also presents pupils larger than normal, tremors, frequent movement and shifting, clammy skin. Scheduled meds given. Encouraged pt to increase fluids as tolerated and to use deep breathing exercises in time of increased anxiety. Will cont to monitor.
[2017-10-30 12:21] VITALS: BP 139/76
--- NOTE | 2017-10-30 12:30 | NUR ---
COWS 17 Pt c/o increased anxiety, heightened sense of panic, increased joint and bone aches and restlessness. Pt presents inability to sit still, high anxiety, frequent sneezing, chills and goosebumps, sweating, nasal stuffiness, agitation, joint and generalized body aches, and stomach cramps, pupils larger than normal, tremors, frequent movement and shifting, clammy skin. Prn meds will be administered. Encouraged pt to increase fluids as tolerated and to use deep breathing exercises in time of increased anxiety. Will cont to monitor.
[2017-10-30] MEDS: METHOCARBAMOL 750 MG TABLET PO PRN ×2 (12:33→21:02)
[2017-10-30] MEDS: CLONIDINE HCL 0.1 MG TABLET PO PRN ×2 (12:33→18:38)
--- NOTE | 2017-10-30 12:33 | NUR ---
PRN Clonidine 0.1 mg, Robaxin 750 mg, Toradol 30 mg IM PRNs given for c/o increased anxiety 10/27, sense of panic, joint and bone aches 8/ pain. Pt is sitting on edge of the bed, presents anxiety, agitation, inability to sit still, frequently shifting/moving legs, breathing faster than normal rate, has poor eye contact, has an anxious mood. Encouraged pt to use deep breathing exercises to promote relaxation. Will monitor and reassess. Addendum: 10/30/17 at 1441 by FLORENTINO RODRIGUEZ RN Correct time is 1333.
--- NOTE | 2017-10-30 12:33 | NUR ---
REASSESSMENT Meds partially effective, pain now 7 and anxiety 7/10. Pt is fidgety in bed, restless, appears anxious and agitated. Encouraged pt to use non-pharmalogical methods for relaxation and distraction. Sitter by bedside. Will continue to monitor.
[2017-10-30] MEDS: KETOROLAC TROMETHAMINE 30 MG INJ IM PRN ×2 (12:38→18:41)
--- NOTE | 2017-10-30 14:15 | NUR ---
Communications Received order for Subutex 2 mg SL for x1 now, x1 10/30/16 2100, and x1 10/31/17 0900.
[2017-10-30] MEDS ORDERED: BUPRENORPHINE HCL 2 MG TAB.SUBL SL ONE ×2 (14:30→21:00)
--- NOTE | 2017-10-30 15:13 | NUR ---
Therapist prompted client to attend twice daily group therapy sessions.
[2017-10-30 16:00] VITALS: BP 116/69
--- NOTE | 2017-10-30 16:30 | NUR ---
COWS 17 Pt continues to present restlessness, anxiety, agitation, joint and bone aches, chills and goosebumps, sweating, nasal congestion and running nose, and stomach cramps, pupils larger than normal, tremors, frequent movement and shifting, clammy skin, and has avoidant eye contact. Encouraged pt to use deep breathing exercises and non-pharmalogical methods in time of increased anxiety. Encouraged pt to verbalize feelings about situation. 1:1 sitter at bedside.
--- NOTE | 2017-10-30 17:15 | NUR ---
WOUND CARE Dressing changed; irrigated with NS, packed w/idoform strip, covered w/ dry drsg, changed again due to soiling after pt showered.
--- NOTE | 2017-10-30 18:41 | NUR ---
PRN Clonidine 0.1 mg po prn and Toradol 30 mg Im given for generalized pain 10/27 and increased anxiety 10/27, intense feelings of panic. Pt is wearing sunglasses while sitting on edge of the bed, cannot sit still in position. Will monitor and reassess.
--- NOTE | 2017-10-30 19:22 | NUR ---
END OF SHIFT Discharge postponed for an extra day; subutex ordered for x1 for 1430, 2100, and tomrw 0900. Continues to have 1:1 sitter for safety. Last CIWA 17; pt c/o increased anxiety, restlessness, and joint/bone aches noted. Toradol x2, clonidine x2, robaxin prns were given. Wound care done, dressing dry and intact; minimal drainage noted. Pt ate 25/75/50% of meals. Pt has taken a shower during shift. Pt has been reluctant to go to groups stating he will go during after care; educated pt on benefits of attending groups. Safety measures in place.
--- NOTE | 2017-10-30 19:30 | NUR ---
START OF SHIFT Pt is a 47 y/o male admitted on 10/27/17 for opiate withdrawal. Pt to continue a 3 day Subutex taper, tolerating well. Last COWS 17 and PRN Toradol, Robaxin, and Clonidine was administered during day shift.Pt is on a 1:1 for confusion and unsteady gait. Upon assessment Pt is A&O x 4, disheveled and unshaven. Pt presents with anxiety, irritability, restlessness, poor concentration, impulsive, stomach cramps, generalized body aches, and difficulty falling and saying asleep. Also, Pt's room is unkempt with candy wrappers on the bedside table and on the ground. Pt has an abscess to the right forearm that is covered with a gauze dressing. Dressing is dry, clean, and intact. No redness, swelling, pain or discomfort noted to Pt's right forearm. Scheduled medications due. Safety measures in place. Call light within reach. Will continue to monitor.
--- NOTE | 2017-10-30 19:41 | NUR ---
PRN CLONIDINE 0.1MG PO AND TORADOL 30MG IM REASSESSMENT Pt was Clonidine 0.1mg for 10/27 anxiety and Toradol 30mg IM for generalized body pain 10/27 by day shift. On reassessment Pt stated, "Nothing has changed. I'm still in pain and I'm still anxious." Pt noted to be restless, anxious, and frigidity. PRN medication noted as not effective. Safety measures in place. Call light within reach. Will continue to monitor.
[2017-10-30 20:00] VITALS: BP 109/64
--- NOTE | 2017-10-30 20:00 | NUR ---
COWS 17 Pt presents with anxiety, agitation, restlessness, hyperactivity, tremors, flushed/clammy skin, chills, sweats, stomach cramps, and body aches. Safety measures in place. Call light within reach. Will continue to monitor.
--- NOTE | 2017-10-30 20:53 | NUR ---
PT TAKEN OFF OF 1:1 Pt was taken off of 1:1 observation per MD order. Pt is A&Ox4 and ambulates with a steady gait. No signs of acute distress noted. Safety measures in place. Call light within reach. Will continue to monitor.
[2017-10-30] MEDS: DICYCLOMINE HCL 20 MG TABLET PO PRN (21:02)
--- NOTE | 2017-10-30 21:02 | NUR ---
PRN BENTYL, TRAZODONE, AND ROBAXIN ADMINISTRATION Pt complains of generalized body aches, stomach cramps, and difficulty falling and staying asleep. PRN medication were administered to help with S/S of withdrawal. Safety measures in place. Call light within reach. Will continue to monitor.
--- NOTE | 2017-10-30 22:02 | NUR ---
PRN BENTYL, TRAZODONE, AND ROBAXIN REASSESSMENT Pt found laying in bed watching TV. Pt stated, "I feel a little bit better, but Im still uncomfortable." Pt continues to be restless and fidgety. Pt's pain level is 6/10 down form 8/10 generalized body pain. Medication noted as not effective. Safety measures in place. Call light within reach. Will continue to monitor.
--- NOTE | 2017-10-31 | NUR ---
VITAL SIGNS REFUSED COWS DEFERRED Pt found in bed with eyes closed. Respirations even and unlabored. No signs of acute distress noted. Pt refused v/s. COWS assessment unable to be carried out per order. Safety measures in place. Call light within reach. Will continue to monitor.
--- NOTE | 2017-10-31 07:12 | NUR ---
END OF SHIFT Pt is a 47 y/o male admitted on 10/27/17 for opiate withdrawal. Pt will continue a 3 day Subutex taper, tolerating well. Pt is no longer on a 1:1 observation, per MD order. Pt is A&O x 4, disheveled and unshaven. Pt ambulates with a steady gait and presented with anxiety, irritability, restlessness, poor concentration, impulsive, stomach cramps, generalized body aches, and difficulty falling and saying asleep. Pt has a abscess to the right forearm that is covered with a gauze dressing. Dressing is dry, clean, and intact. No redness, swelling, pain or discomfort noted to Pt's right forearm. Scheduled medications and PRN Bentyl, Trazodone, and Robaxin administered, effective with S/S of withdrawal AEB Pt sleeping for 7 hours. Intake 1000 ml, void x 1 , stool x 0. Safety measures in place. Call light within reach. Pt's needs have been met.
--- NOTE | 2017-10-31 07:40 | NUR ---
START OF SHIFT Pt is a 47 y/o M admitted on 10/27/17 for medically supervised heroin and fentanyl withdrawal. Today is the 4th day of his subutex taper which has been extended; pt is tolerating well. 1:1 sitter has been d/c'ed. Last COWS 17 @1999 and pt slept 7 hrs. Pt is A/Ox4, respirations even and unlabored, has a flat affect, has a disheveled appearance, appears nervous, is fidgety, restless. Pt presents runny nose and congestion, goosebumps, joint/bone and generalized body aches, stomach cramps, restless legs, anxiety, agitation, and pupils larger than normal. Pt has been given robaxin, bentyl and trazodone prns during overnight caregiver. Wound has been seen by Ariana GUERRERO this am and dressing is dry and intact. Slept 6 hrs and last COWS 11. Side rails upx2 and padded, bed in low position. Call light within reach and safety measures in place. Will continue to monitor. Addendum: 11/01/17 at 0733 by FLORENTINO RODRIGUEZ RN Pt slept 7hr and last ciwa 17
[2017-10-31 08:00] VITALS: BP 151/61
--- NOTE | 2017-10-31 08:00 | NUR ---
COWS 15 Pt is A/Ox4, respirations even and unlabored. Pt has a flat affect, depressive and anxious mood, has a disheveled appearance, is nervous and fidgety, restless. Pt presents runny nose and congestion, goosebumps, joint/bone and generalized body aches, stomach cramps, restless legs, anxiety, agitation, and pupils larger than normal. Pt reports increased pain in the wound area. Scheduled meds to be given. Toradol, clondine, and bentyl prns to be given.
[2017-10-31] MEDS: DICYCLOMINE HCL 20 MG TABLET PO PRN ×2 (08:37→21:22)
[2017-10-31] MEDS: SULFAMETH/TRIMETH 800/160 MG TABLET PO SCH ×2 (08:37→21:21)
[2017-10-31] MEDS: CLONIDINE HCL 0.1 MG TABLET PO PRN ×3 (08:38→21:22)
[2017-10-31] MEDS: GABAPENTIN 400 MG CAPSULE PO SCH ×3 (08:38→21:22)
[2017-10-31] MEDS: KETOROLAC TROMETHAMINE 30 MG INJ IM PRN ×3 (08:48→21:21)
--- NOTE | 2017-10-31 08:48 | NUR ---
PRN Toradol 30 mg IM, clonidine 0.1 mg po, bentyl 20 mg po PRNs given for stomach cramps, generalized body aches, sweating, anxiety and agitation, w/ facial grimacing, restlessness, irritability. Will monitor and reassess.
[2017-10-31] MEDS ORDERED: BUPRENORPHINE HCL 2 MG TAB.SUBL SL ONE (09:00)
--- NOTE | 2017-10-31 09:48 | NUR ---
REASSESSMENT Pt reports meds has been partially effective in decreasing intensity of generalized body aches, anxiety, and agitation. Pt reports body aches 7/10 and anxiety 7/10. Refuses other prn meds at this time. Will continue to monitor.
[2017-10-31] MEDS: METHOCARBAMOL 750 MG TABLET PO PRN (11:05)
--- NOTE | 2017-10-31 11:05 | NUR ---
PRN Robaxin 750 mg and tylenol 650 mg po prn given for back pain 10/27 w/ facial grimacing, restlessness, irritability and anxious mood. Will monitor and reassess.
--- NOTE | 2017-10-31 11:30 | NUR ---
Wound Culture MRSA positive; [facility] aware; no new orders. Pt will continue po abx.
--- NOTE | 2017-10-31 12:05 | NUR ---
REASSESSMENT Pt verbalized meds decreased his back pain minimally and mostly still there. Encouraged pt to use non-pharmalogical methods. Will cont to monitor.
[2017-10-31 12:23] VITALS: BP 114/62
--- NOTE | 2017-10-31 12:23 | NUR ---
COWS 15 Pt continues to have a depressive and anxious mood, a flat affect, has a disheveled appearance, and is restlessly moving around. Pt presents persistent back ache, treated with toradol IM, actaminophen, and robaxin; to be reassessed. Pt presents runny nose and congestion, goosebumps, joint/bone and generalized body aches, stomach cramps, restless legs, anxiety, agitation, and pupils larger than normal. Lidocaine patch is ordered and will be given. Will continue to monitor.
[2017-10-31] MEDS: LIDOCAINE 5% PATCH TD SCH (13:06)
[2017-10-31] MEDS ORDERED: SULF1TAB3 PO (15:22)
[2017-10-31] MEDS ORDERED: DIPH50CA37 PO (15:22)
[2017-10-31] MEDS ORDERED: METH-406 PO (15:22)
[2017-10-31] MEDS ORDERED: TRAZ-213 PO (15:22)
[2017-10-31] MEDS ORDERED: GABA-536 PO (15:22)
[2017-10-31] MEDS ORDERED: CLON0.1T14 PO (15:22)
[2017-10-31] MEDS ORDERED: IBUP-1955 PO (15:22)
[2017-10-31] MEDS ORDERED: DICY20TA28 PO (15:22)
[2017-10-31] MEDS ORDERED: LIDO30AD10 TD (15:22)
--- NOTE | 2017-10-31 16:29 | NUR ---
COWS 15 Pt has just left group and pt appears to be hyperactive, appears flushed and has an anxious mood,and a flat affect. Pt c/o persistent back ache, generalized pain and anxiety, presents runny nose and congestion, goosebumps, joint/bone and generalized body aches, stomach cramps, restless legs, anxiety, agitation, and pupils larger than normal. Lidocaine patch, Toradol IM and clonidine prns given. Encouraged pt to use non-pharmalogical methods for distraction and pt verbalized understanding. Will continue to monitor.
[2017-10-31 16:30] VITALS: BP 105/62
--- NOTE | 2017-10-31 18:45 | NUR ---
END OF SHIFT Wound culture is positive for MRSA; aware and pt to continue po abx. Wound drsg changed, drsg dry and intact. Educated pt on wound care, pt was able to return demonstration. Pt is to continue wound care after discharge on his own with supplies given to pt. Pt has completed a 4 day Subutex taper this am and is scheduled to be discharged tomrw. Pt has been given toradol IM x2, clonidine x2, bentyl, robaxin, and tylenol PRN given. Pt c/o increased pain, back and generalized, restlessness and increased anxiety. Pt has showered and shaved durings shift. Last COWS 15 @1600. Safety measures in place.
--- NOTE | 2017-10-31 19:50 | NUR ---
Start of Shift Note Received 47 y/o male px, admitted for medically supervised withdrawal from opiates. Px was also using crack cocaine. Px completed 3 day Subutex taper. He tolerated it. Px is to be D/C tomorrow, 11/01/2017. Last COWS reported 15 by AM shift nurse. Px is on contact isolation due to positive MRSA on right forearm wound covered with dressing. During the rounds at 1950, px is awake standing inside his room. Px appears anxious. He is disheveled. Unfinished drinks and snack noted on top of the bed side table. Px stated that his anxiety is 10/10 with generalized body aches of 8/10. Px also complains of sweats, stuffy nose and stomach cramps. Px also wants sleep medications later. Bed on lowest position, side rails up 2x and call light within reach. We'll continue to monitor.
[2017-10-31 20:00] VITALS: BP 118/67
--- NOTE | 2017-10-31 20:00 | NUR ---
COWS 14 Px appears anxious. Px stated that his anxiety is 10/10 with generalized body aches of 8/10. Px also complains of sweats, stuffy nose and stomach cramps. W[place]= 68.
[2017-10-31] MEDS: TRAZODONE 50 MG TABLET PO PRN (21:21)
--- NOTE | 2017-10-31 21:21 | NUR ---
PRN medications Px received Toradol 30 mg injection given IM on right deltoids for generalized body aches of 8/10 as verbalized, Clonidine 0.1 mg PO for anxiety of 10/10, Bentyl 20 mg PO for stomach cramps, and Trazodone 50 mg PO for insomnia. We'll continue to monitor.
--- NOTE | 2017-10-31 21:51 | NUR ---
Reassessment of pain Px stated that his pain improved from 8/10 to 5/10
--- NOTE | 2017-10-31 22:22 | NUR ---
Reassessment of anxiety and stomach cramps Px stated that his anxiety improved a little bit and stomach cramps are gone. We'll continue to monitor.
[2017-11-01] VITALS: BP 120/72
--- NOTE | 2017-11-01 | NUR ---
COWS 12 Px is still awake but ready to sleep. Px appears anxious. Px stated that his anxiety is 7/10 with generalized body aches of 5/10. Px received Toradol 30 mg IM and Clonidine 0.1 mg PO a while ago. Px also complains of sweats, stuffy nose and stomach cramps. Px received Bentyl 20 mg and it was effective.
[2017-11-01 04:00] VITALS: BP 123/73
--- NOTE | 2017-11-01 04:00 | NUR ---
COWS deferred COWS deferred due to the px is asleep to assess if the px is awake per doctor's order. We'll continue to monitor.
--- NOTE | 2017-11-01 06:30 | NUR ---
COWS 12 Px is awake. Px appears anxious. Px stated that his anxiety is around 5/10 with generalized body aches of 5/10. Px received Toradol 30 mg IM, Bentyl 20 mg PO and Clonidine 0.1 mg PO last night. Px complains of sweats, stuffy nose and stomach cramps.
--- NOTE | 2017-11-01 07:05 | NUR ---
End of Shift Nurse Px is to be D/C today, 11/01/2017. During the shift at 2121, px received Toradol 30 mg IM for pain, Clonidine 0.1 mg PO for anxiety, Trazodone 50 mg PO for insomnia and Bentyl 20 mg PO for stomach cramps. They were effective. Px oral intake is 1300 ml, voided 3x, with 1x BM. Px slept for 6 hours. At 0630, px is awake on bed in fowlers position. Last COWS 12. Bed on lowest position, side rails up 2x, and call light within reach. Px endorsed to AM shift nurse.
--- NOTE | 2017-11-01 07:34 | NUR ---
START OF SHIFT Pt is a 47 y/o M admitted on 10/27/17 for medically supervised heroin and fentanyl withdrawal. Pt has completed a 4 day subutex taper; pt tolerated well. Pt is medically cleared to be discharged today. Last COWS 12 @0600 and pt slept 6 hrs. Pt is A/Ox4, respirations even and unlabored, has a flat affect, has a disheveled appearance, is fidgety. Pt presents runny nose and congestion, goosebumps, joint/bone and generalized body aches, restless legs, anxiety, agitation, and pupils larger than normal, anxiety and agitation. Pt has been given toradol, clonidine and bentyl prns during outsole caser. Dressing on wound is dry and intact. Side rails upx2 and padded, bed in low position. Call light within reach and safety measures in place. Will continue to monitor.
[2017-11-01 08:00] VITALS: BP 133/61
--- NOTE | 2017-11-01 08:00 | NUR ---
COWS 7 Pt is a/ox4, has an anxious mood,and a flat affect. Pt c/o persistent back ache, generalized pain and anxiety, presents intermittent goosebumps, joint/bone and generalized body aches, back ache, stomach cramps, restless legs, anxiety, agitation, sweating, and pupils larger than normal. Lidocaine patch, Toradol IM and clonidine prns given. Encouraged pt to use non-pharmalogical methods for distraction and pt verbalized understanding. Will continue to monitor.
[2017-11-01 08:17] VITALS: BP 133/61
[2017-11-01] MEDS: METHOCARBAMOL 750 MG TABLET PO PRN (08:17)
[2017-11-01] MEDS: CLONIDINE HCL 0.1 MG TABLET PO PRN (08:17)
[2017-11-01] MEDS: SULFAMETH/TRIMETH 800/160 MG TABLET PO SCH (08:17)
[2017-11-01] MEDS: GABAPENTIN 400 MG CAPSULE PO SCH (08:17)
--- NOTE | 2017-11-01 08:17 | NUR ---
PRN Toradol IM, clonidine po and robaxin po prns given for c/o back ache 10/27, increased anxiety. Will monitor and reassess.
[2017-11-01] MEDS: KETOROLAC TROMETHAMINE 30 MG INJ IM PRN (08:18)
[2017-11-01] MEDS: LIDOCAINE 5% PATCH TD SCH (08:22)
--- NOTE | 2017-11-01 09:17 | NUR ---
REASSESSMENT Pt has reported meds were effective in decreasing back ache and anxiety. Pt states he is ready to be discharged.
--- NOTE | 2017-11-01 09:33 | NUR ---
DISCHARGE NOTE Pt is in stable condition, VS wnl, respirations even and unlabored. Last COWS 7. Pt has been given discharge instructions, including instructions on how to do the wound care and dressing changes correctly. Pt was able to return demonstration twice yesterday and today. Pt has been given extra supplies for wound care dressing. Pt has left the building on 11/01/17 at 0933 with all belongings, prescriptions, wound care supplies and discharge paperwork. Pt has been picked up by [employer] and has been taken to [facility].
== END 2017-11-01 09:33 | disposition other institution (70) | DRG 895 ==
LOC: SRC 15:20
PROVIDERS: ADMIT Family Medicine Addiction Medicine; ATTEND Family Medicine Addiction Medicine
PROC: HZ2ZZZZ Detoxification Services for Substance Abuse Treatment (ICD-10-PCS; principal; 2017-10-27)
PROC: 0H9DX0Z Drainage of Right Lower Arm Skin with Drainage Device, External Approach (ICD-10-PCS; 2017-10-28)
PROC: HZ31ZZZ Individual Counseling for Substance Abuse Treatment, Behavioral (ICD-10-PCS; 2017-10-30)
PROC: HZ41ZZZ Group Counseling for Substance Abuse Treatment, Behavioral (ICD-10-PCS; 2017-10-31)
DX: F11.23 Opioid dependence with withdrawal (principal); L02.413 Cutaneous abscess of right upper limb; F17.210 Nicotine dependence, cigarettes, uncomplicated; Z59.0 Homelessness; S51.831S Puncture wound without foreign body of right forearm, sequela; X78.8XXS Intentional self-harm by other sharp object, sequela; B95.62 Methicillin resistant Staphylococcus aureus infection as the cause of diseases classified elsewhere; Z16.23 Resistance to quinolones and fluoroquinolones; Z16.11 Resistance to penicillins; D64.9 Anemia, unspecified; E83.51 Hypocalcemia; E88.09 Other disorders of plasma-protein metabolism, not elsewhere classified; F14.10 Cocaine abuse, uncomplicated; F41.9 Anxiety disorder, unspecified
CPT/HCPCS: 36415; 70030-TC; 80307; 80353; 80361; 83735; 85025; 86592; 86705; 86803; 87070; 87077; 87340; 87806; G0480; J1885; J2060; Q0163